=== PATIENT | male | born 1960 | race Caucasian/White ===

== ENCOUNTER → 2017-01-07 | Outpatient (CLI) | payer BC ==
[~2017-01-07] MED LIST: ADVICOR 5001 BOTTLE; DIOVAN; DIOVAN HCT; DULCOLAX; VICODIN 5/500 T1 TAB; ZYLOPRIM
[2017-01-07 10:34] LABS: TESTOSTERONE TOTAL 641.29 ng/dL (17-781)
[2017-01-07 10:40] LABS: PROSTATE SPECIFIC AG SCR 0.76 ng/ml (0.0-4.0)
== END | disposition home or self-care (01) ==
LOC: CLAB 09:22
PROVIDERS: Urology
DX: E29.1 Testicular hypofunction (principal)
CPT/HCPCS: 36415; 83036; 84403; G0103